=== PATIENT | male | born 1935 | race Caucasian/White ===

== ENCOUNTER 2018-03-07 03:15 | Inpatient (IN) | payer MEDICARE, BC ==
[2018-03-07 03:52] LABS: #Lymphocytes 1.3 thou/uL (1.20-3.40); #Monocytes 0.4 thou/uL (0.11-0.59); #Neutrophils 11.6 thou/uL (1.40-6.50); %Basophils 0.2 % (0.0-1.0); %Eosinophils 0.2 % (0.0-10.0); %Lymphocytes 9.5 % (21.0-51.0); %Monocytes 2.7 % (0.0-10.0); %Neutrophils 87.4 % (42.0-75.0); Hemoglobin 13.7 g/dL (14.0-18.0); Mean Corpuscular HGB CONC 33.2 g/dL (32.0-36.0); Mean Corpuscular Hemoglobin 34.5 pg (27.0-31.0); Mean Platelet Volume 6.8 fL (7.4-10.4); Platelet Count 401 thou/uL (130-400); RBC Distribution Width 12.6 % (11.5-14.5); Red Blood Cell (RBC) Count 3.97 mill/uL (4.70-6.10); White Blood Cell (WBC) Count 13.3 thou/uL (4.8-10.8)
[2018-03-07 04:08] LABS: ALT (SGPT) 17 U/L (8-55); AST (SGOT) 70 U/L (5-34); Albumin 4.4 g/dL (3.4-4.8); Alkaline Phosphatase 69 U/L (40-150); Anion Gap 17 mmol/L (10-20); BUN (Urea Nitrogen) 23 mg/dL (8.4-25.7); Bilirubin, Total 0.5 mg/dL (0.2-1.2); Calc. Creatinine Clearance 0 mL/min (70-130); Calcium 9.3 mg/dL (7.8-10.44); Carbon Dioxide 20 mmol/L (23-31); Chloride 108 mmol/L (98-107); Estimated GFR-MDRD 33; Globulin 3.8 g/dL (2.4-3.5); Glucose 144 mg/dL (83-110); Lipase 13 U/L (8-78); Potassium 4.4 mmol/L (3.5-5.1); Protein, Total 8.2 g/dL (5.8-8.1); Sodium 141 mmol/L (136-145)
[2018-03-07 04:11] LABS: Troponin I Less than 0.010 ng/mL (< 0.028)
[2018-03-07 04:13] LABS: CKMB 8.1 ng/mL (0-6.6)
[2018-03-07] MEDS ORDERED: Ondansetron PF 4 MG/2 ML Vial ONE (04:20)
[2018-03-07] MEDS ORDERED: Morphine 4 MG/ML VIAL ONE (04:20)
[2018-03-07] MEDS ORDERED: Ondansetron PF 4 MG/2 ML Vial IVP PRN ×2 (05:00→10:32)
[2018-03-07] MEDS ORDERED: Ondansetron ODT 4 MG TAB SL PRN (05:00)
[2018-03-07] MEDS ORDERED: Acetaminophen 325 MG TAB PO PRN ×2 (05:00→10:32)
[2018-03-07 06:11] LABS: Bilirubin Negative (Negative); Blood, Urine Negative (Negative); Clarity CLEAR (Clear); Glucose, Urine (Dipstick) 100 mg/dL (Negative); Leukocyte Negative (Negative); Nitrite Negative (Negative); Protein, Urine (Dipstick) 300 mg/dL (Neg-Trace); Specific Gravity, Urine 1.018 (1.002-1.036); Urobilinogen 0.2 mg/dL (0.2-1.0)
[2018-03-07 06:13] LABS: Bacteria/HPF None Seen HPF (None Seen); Hyaline Casts/LPF 0-3 HYALINE CAST LPF (0-3 Hyaline); Pathc Cast-AUWi Flag 0.58 (0-2.49); Squamous Epithelial 0-3 HPF (0-3)
[2018-03-07 06:51] LABS: RBC/HPF 0-3 HPF (0-3)
[2018-03-07 06:55] LABS: Crystals/HPF 1+ AMORPH PHOS HPF (Negative)
--- NOTE | 2018-03-07 08:23 | CT ---
PRELIMINARY REPORT/[facility]/EMERGENTY AFTER-HOURS PROCEDURE CT Abdomen and Pelvis Without Intravenous Contrast CLINICAL HISTORY: 82 years old, male; Pain; Abdominal pain; Generalized; Patient HX: Non contrast due to patient allerg y; Pt reports abdominal pain with associated vomiting and diarrhea. HX of small bowel obstruction. TECHNIQUE: Axial computed tomography images of the abdomen and pelvis without intravenous contrast. Coronal reformatted images were created and reviewed. COMPARISON: No relevant prior studies available. FINDINGS: Lung bases: No acute findings. No mass. No consolidation. Emphysematous changes. Few punctate periphe ral nonspecific nodules. ABDOMEN: Liver: No mass. Gallbladder and bile ducts: No calcified stones. No ductal dilation. Pancreas: No ductal dilation. No mass. Spleen: No mass. Adrenals: Mild bilateral adrenal nodularity/thickening. Kidneys and ureters: No obstructing stones. No hydronephrosis. Bilateral renal cortical cysts and few small renal cortical lesions too small to characterize/higher than simple fluid attenuation that can be followed. Stomach and bowel: Air and fluid filled mildly dilated small bowel loops. Distended stomach. Colonic diverticulosis. PELVIS: Appendix: No findings to suggest acute appendicitis. Bladder: No stones. Reproductive: Enlarged prostate. ABDOMEN and PELVIS: Intraperitoneal space: Mild pelvic cul-de-sac free fluid. No free air. Bones/joints: No acute fracture. Soft tissues: No acute findings. Vasculature: Atherosclerotic calcifications. Infrarenal abdominal aortic aneurysm with aortobiiliac stent-graft in place. Left renal stent. Lymph nodes: No lymphadenopathy. IMPRESSION: Mildly dilated small bowel loops could relate to enteritis, ileus; partial small bowel obstruction no t completely excluded. Other findings above. Thank you for allowing us to participate in the care of your patient. Dictated and Authenticated by: Abdelrahman Méndez MD 03/07/2018 5:15 AM Central Time ([place] & [place]) FINAL REPORT ABDOMEN CT WITHOUT CONTRAST PELVIC CT WITHOUT CONTRAST: COMPARISON: 11/15/2016. HISTORY: Abdominal pain. FINDINGS: This report is in agreement with the preliminary report by [facility]. There are bilateral renal cortical c ysts with additional hypodensities that are too small to characterize. Normal-caliber appendix is no jessica. No evidence of bowel obstruction. Intrarenal abdominal aortic aneurysm with aortobiiliac stent graft is noted. There is a left renal artery stent. POS: [facility]
[2018-03-07] MEDS ORDERED: Morphine 4 MG/ML VIAL SLOW IVP PRN (08:38)
[2018-03-07] MEDS ORDERED: Acetaminophen 650 MG Suppository PR PRN (10:32)
[2018-03-07] MEDS ORDERED: Ondansetron ODT 4 MG TAB PO PRN (10:32)
[2018-03-07] MEDS ORDERED: hydrALAZINE 20 MG/ML VIAL SLOW IVP PRN (10:35)
--- NOTE | 2018-03-07 11:05 | HP ---
PRIMARY CARE PHYSICIAN: SLIM Campbell CHIEF COMPLAINT: Sudden onset of abdominal pain. HISTORY OF PRESENT ILLNESS: The patient is an 82-year-old male with coronary artery disease, hypertension, dyslipidemia, and small-bowel obstruction last year, presented to the emergency room with sudden onset of abdominal pain that started around 7:00 p.m. while he was at home. He had some diarrhea at the onset; however, no bowel movement since then. The abdominal pain was moderate to severe in intensity, more or less constant in the lower quadrants. No aggravating or relieving factor reported. He has not passed gas over the last 8 hours. He denies any abdominal surgery except for percutaneous aortic stent placement. He had a colonoscopy around 6 years ago. He had nausea with several episodes of vomiting. The last episode of nausea and vomiting was before 2:00 a.m. In the emergency room, his initial vital signs showed temperature 97.7, respiration 18, pulse rate of 100 with a blood pressure of 177/88, with O2 saturation 95% on room air. A CT scan of the abdomen without contrast was consistent with mildly dilated small bowel loops consistent with small-bowel obstruction. He received morphine and Zofran in the emergency room. PAST MEDICAL HISTORY: 1. Coronary artery disease, status post coronary artery bypass grafting. 2. Peripheral vascular disease. 3. Dyslipidemia. 4. Hypertension. 5. Former smoker. 6. Hospitalization for small-bowel obstruction last year. 7. Benign prostatic hypertrophy. 8. Chronic kidney disease stage 3. PAST SURGICAL HISTORY: 1. CABG in [place] around 15 years ago. 2. Endovascular aneurysm repair of the abdominal aortic aneurysm as well as a stent placement to the left renal artery by Dr. Abarca in 2010. ALLERGIES: The patient is allergic to IODINE. CURRENT HOME MEDICATIONS: Plavix 75 mg daily, fenofibrate 160 mg daily, hydralazine 50 mg b.i.d., Flomax 0.4 mg daily, atenolol 100 mg daily, aspirin 81 mg daily, amlodipine 10 mg daily. SOCIAL HISTORY: The patient currently lives at home. Denies any current use of smoking, alcohol or drug use. CODE STATUS: He makes his own decisions with the help of his family. He is FULL CODE. FAMILY HISTORY: Positive for hypertension. REVIEW OF SYSTEMS: The following complete review of systems was negative, unless otherwise mentioned in the HPI or below: Constitutional: Weight loss or gain, ability to conduct usual activities. Skin: Rash, itching. Eyes: Double vision, pain. ENT/Mouth: Nose bleeding, neck stiffness, pain, tenderness. Cardiovascular: Palpitations, dyspnea on exertion, orthopnea. Respiratory: Shortness of breath, wheezing, cough, hemoptysis, fever or night sweats. Gastrointestinal: Poor appetite, abdominal pain, heartburn, nausea, vomiting, constipation, or diarrhea. Genitourinary: Urgency, frequency, dysuria, nocturia. Musculoskeletal: Pain, swelling. Neurologic/Psychiatric: Anxiety, depression. Allergy/Immunologic: Skin rash, bleeding tendency. PHYSICAL EXAMINATION: VITAL SIGNS: As discussed above. GENERAL: An 82-year-old male in no distress. He states that morphine has controlled his pain. HEENT: Head atraumatic, normocephalic. Sclerae are anicteric. Moist mucous membranes. No oral lesion. NECK: Supple, no JVD appreciated. No carotid bruit. LUNGS: Clear to auscultation bilaterally, no wheezing, rales or rhonchi. HEART: S1, S2 present. Regular rate and rhythm. No rubs or gallops appreciated. ABDOMEN: Distended. There is mild tenderness in the lower quadrants. Hyperactive bowel sounds. No guarding, rigidity. EXTREMITIES: No edema or calf tenderness. NEUROLOGIC: Grossly nonfocal, moves all 4 extremities. PSYCHIATRY: Alert, awake, oriented x3. SKIN: Warm and dry. LYMPH NODES: No palpable lymph nodes in the neck. PERIPHERAL VASCULAR: Radial pulses palpable bilaterally. MUSCULOSKELETAL: No joint swelling or tenderness. LABORATORY FINDINGS: CBC showed WBC 13.3 with hemoglobin 13.7, hematocrit 41.3 , platelet of 401. Chemistry showed sodium 141, potassium 4.4, chloride 108, bicarbonate 20, BUN 20, creatinine 1.96. Troponin negative. AST 70. CT scan of the abdomen and pelvis by my review as discussed above. IMPRESSION: 1. Small-bowel obstruction. 2. Coronary artery disease, status post coronary artery bypass graft. 3. Peripheral vascular disease with aortic aneurysm repair as well as left renal artery stent placement on aspirin and Plavix. 4. Hypertension. 5. Chronic kidney disease stage 3. 6. Hyperlipidemia. 7. Iodine allergy. 8. Dehydration from a small-bowel obstruction. 9. Leukocytosis, unlikely to be infectious. 10. Chronic macrocytosis. PLAN: The patient will be monitored on the medical floor. We will get vitals q.4h. We will start him on IV fluids. I discussed with Dr. Babcock. Please note that he is refusing NG tube. We will start him on Pepcid IV twice a day. All of his oral medications will be held for now since he is n.p.o. Pain control with IV morphine. A.m. labs including lactic acid. Fall precaution. Walking program. Plan of care was discussed with the patient and the family in detail. He stated understanding. MTDD
[2018-03-07] MEDS: Dextrose 5 %-0.45 % NaCl 1,000 ML IV SCH ×2 (11:11→20:51)
[2018-03-07 12:01] VITALS: BMI 28.0
[2018-03-07] MEDS ORDERED: MD-Gastroview 120 ML BOT ONE (16:04)
--- NOTE | 2018-03-07 16:18 | HP ---
DATE OF ADMISSION: 03/07/2018 HISTORY OF PRESENT ILLNESS: Kentrell Gardner is an 82-year-old male patient who lives in [facility]. He is independent. He is busy on his property taking care of the property and livestock. The patient has been seen in 2014 and 2017 for similar episodes as this presentation, mainly abdominal di stention, nausea and vomiting. He has not had previous abdominal operations. He has been seen on , 02/12/2016 and 11/18/2016 and has had small bowel follow throughs documenting lack of compl ete obstruction, but has had some persistent dilated loops of bowel. The patient reports having had a colonoscopy in the past, several years ago, but cannot recall when. He has had normal bowel functi on in the interim, but yesterday began having abdominal distention, cramps and vomiting. He was admi tted to the hospital and underwent a CAT scan of the abdomen and pelvis noting small bowel distention , stomach distention with fluid and there possibly could be a questionable transition point in the te rminal ileum, although difficult to delineate. Since being in the hospital, he has not passed gas or stool. The patient is adamant to try a small bowel follow through as this seems to have helped him in the past. ALLERGIES: IODINATED CONTRAST, although states he took Gastrografin last hospitalization without pro blems. TOBACCO: None for many years. Tobacco abuse decades past. ALCOHOL: None. MEDICATIONS: Aspirin, amlodipine, Flomax, fenofibrate, Tenormin, Plavix. PAST SURGICAL HISTORY: Aortic stent for aneurysmal disease placed by Dr. Abarca, coronary artery bypa ss grafting in the past. The patient has not had any cardiac events since that time. He is followed by Dr. Estevze. He has bilateral renal artery stenosis. ORIF right ankle in 2002. PAST MEDICAL HISTORY: Coronary artery disease, chronic kidney disease, renal artery stenosis and alf vated triglycerides. SOCIAL HISTORY: Tobacco cessation early 2016, half pack a day prior. Alcohol, socially, rarely. patient reports allergies to INTRAVENOUS IODINE. He reports tolerating the Gastrografin study last visit without problems. REVIEW OF SYSTEMS: Ten point noncontributory. PHYSICAL EXAMINATION: VITAL SIGNS: 5 feet 9 inches, 190 pounds, 28 BMI, 98.2, 73, 169/80. LUNGS: Clear to auscultation. CARDIAC: Regular rate and rhythm without murmur or gallop. ABDOMEN: Soft, nontender, mildly distended, questionably tympanitic, but very minimally so. No abdo fredy tenderness. EXTREMITIES: Unremarkable. LABORATORY DATA: White count 13, hemoglobin 13. Basic metabolic profile normal except for a creatin ine of 1.97, which is about baseline for him. ASSESSMENT AND PLAN: 1. CAT scan demonstrating questionable partial bowel obstruction. He has not passed flatus or stool . He has not had abdominal operations in the past. We will plan Gastrografin small bowel follow thr ough. 2. Status post endovascular aortoiliac stenting and percutaneous venous angioplasty and stenting of the iliacs. 3. History of tobacco abuse. 4. Chronic obstructive pulmonary disease. 5. History of coronary artery bypass grafting, followed by Dr. Estevez.
--- NOTE | 2018-03-07 19:37 | RAD ---
SMALL BOWEL FOLLOW THROUGH: 03/07/18 HISTORY: Abdominal pain. Possible obstruction. FINDINGS: Gastrografin contrast was administered. Nondilated small bowel throughout the abdomen. Colon was reac hed at two hours. IMPRESSION: No evidence of bowel obstruction. POS: [facility]
[2018-03-07] MEDS ORDERED: Famotidine/PF 20 mg/2ml Vial SLOW IVP SCH (21:00)
[2018-03-08] MEDS: Dextrose 5 %-0.45 % NaCl 1,000 ML IV SCH (03:13)
[2018-03-08 07:55] VITALS: BP 151/75; TEMP 98.1
[2018-03-08] MEDS ORDERED: Aspirin 81 mg Enteric Coated Tablet PO SCH (09:00)
[2018-03-08] MEDS ORDERED: Atenolol 50 MG TAB PO SCH (09:00)
[2018-03-08] MEDS ORDERED: Non-Formulary Item 1 EACH (Fenofibrate [Fenofibrate] 160 MG) PO SCH (09:00)
[2018-03-08] MEDS ORDERED: Amlodipine 10 MG TAB PO SCH (09:00)
[2018-03-08] MEDS ORDERED: Clopidogrel Bisulfate 75 MG TAB PO SCH (09:00)
[2018-03-08] MEDS ORDERED: Non-Formulary Item 1 EACH (Esomeprazole Magnesium [Nexium] 40 MG) PO SCH (09:00)
[2018-03-08] MEDS ORDERED: Tamsulosin HCl 0.4 MG CAP PO SCH (09:00)
[2018-03-08] MEDS ORDERED: Polyethylene Glycol 3350 17 GM Packet PO SCH (09:00)
[2018-03-08] MEDS ORDERED: Non-Formulary Item 1 EACH (Hydralazine Hcl [Hydralazine Hcl] 50 MG) PO SCH (09:00)
[2018-03-08] MEDS ORDERED: Fenofibrate Nanocrystallized 145 MG TAB PO SCH (09:00)
[2018-03-08] MEDS ORDERED: hydrALAZINE 25 MG TAB PO SCH (09:00)
[2018-03-08] MEDS ORDERED: Non-Formulary Item 1 EACH (Atenolol [Tenormin] 100 MG) PO SCH (09:00)
--- NOTE | 2018-03-08 11:48 | PRG ---
DATE OF SERVICE: 03/08/2018 HISTORY OF PRESENT ILLNESS: Kentrell Gardner is doing well today. Small bowel follow through revealed tra nsient of the colon within a short time. Patient is having multiple bowel movements. He was started on regular diet last night and tolerated this. He has had more bowel movements this morning. OBJECTIVE: LUNGS: Clear to auscultation. CARDIAC: Regular rate and rhythm without murmur. ABDOMEN: Soft, nontender, nondistended. ASSESSMENT AND PLAN: Resolved bowel obstruction. The patient has never had any abdominal operations . Etiology of his problems is uncertain. He has had a colonoscopy years past. We might consider di agnostic laparoscopy in the future if he continues to have these. He has had these episodes yearly f or the past four years requiring hospitalizations and small bowel follow through. He refers to the G astrografin his jungle juice because it makes him feel so much better and resolved his obstructive sy mptoms. CAT scan does not reveal the etiology of these occurrences. The patient does not have any s ymptoms in between these episodes. I have recommended he take MiraLax daily. He will be discharged home today.
--- NOTE | 2018-03-08 14:36 | PQF ---
JUSTIN MERINO MALIK MD [id number] SURG A- [id number] CLINICAL DOCUMENTATION IMPROVEMENT CLARIFICATION FORM: ICD-10 Updated PLEASE DO AN ADDENDUM TO THE PROGRESS NOTE WITH ANY DOCUMENTATION UPDATES OR ADDITIONS AND CARRY THROUGH TO DC SUMMARY. THANK YOU. DATE: 03/08/18 ATTN: DR. PATEL Please exercise your independent, professional judgment in responding to the clarification form. Clinical indicators are provided on the bottom of this form for your review Please check appropriate box(s): [ ] SIRS due to Non-infectious process: [ ] small bowel obstruction [ ] Enteritis [ ] Without organ dysfunction [ ] Other diagnosis [ ] Unable to determine In addition, please specify: Present on Admission (POA): [ ] Yes [ ] No [ ] Unable to determine For continuity of documentation, please document condition throughout progress notes and discharge summary. Thank You. CLINICAL INDICATORS - SIGNS / SYMPTOMS / LABS HR 100 03/07 VS WBC 13.3 03/[address] A/P: 03/07--mildly dilated small bowel loops could relate to enteritis, ileus ; partial small bowel obstruction not completed excluded RISK FACTORS history per H&P of SBO last year TREATMENT IV Fluids--> 1 liter NS x1 per JUL 30 Daily labs per orders 03/07 to date Management of underlying cause--morphine, zofran iv ED per JUL THANK YOU, ALFREDO (This form is maintained as a part of the permanent medical record) 2014 [employer], [employer]. All Rights Reserved Alfredo Bell RN, BSN, CCDS [email or web address] [phone] [facility] CENTERKamille
--- NOTE | 2018-03-09 10:36 | DIS ---
DATE OF DISCHARGE: 03/08/2018 DISCHARGE DISPOSITION: Home. FOLLOWUP: 1. Follow up with primary care physician, Payton Velazquez, nurse practitioner in 1 week. 2. Follow up with General Surgery, Dr. Babcock in 2 weeks. DISCHARGE MEDICATIONS: As same as admission medication. No changes were made. ALLERGIES: The patient is allergic to IODINE. The patient was seen and examined on the day of discharge, denies any new complaints, no chest pain, shortness of breath or palpitations. BRIEF HOSPITAL COURSE: Patient is an 82-year-old male with coronary artery disease, hypertension, dy slipidemia, and small-bowel obstruction last year, presented to the hospital with sudden onset of abd ominal pain. His workup in the emergency room was consistent with small-bowel obstruction. He recei isidoro morphine, Zofran in the emergency room. Please refer to the history and physical for further det ails. The patient was admitted to the hospital with a diagnosis of small-bowel obstruction. He declined NG tube. He was seen by General Surgery, Dr. Babcock. He was placed on IV fluids with Pepcid. He star jessica having several bowel movements after Gastrografin small bowel follow through. He has been cleare d by General Surgery for discharge. FINAL DIAGNOSES: 1. Systemic inflammatory response syndrome secondary to small bowel obstruction, resolved. 2. Coronary artery disease, status post coronary artery bypass grafting. 3. Peripheral vascular disease with aortic aneurysm repair as well as left renal artery stent placem ent on aspirin and Plavix. 4. Hyperlipidemia. 5. Hypertension. 6. Chronic kidney disease, stage 3. 7. IODINE allergy. 8. Dehydration. 9. Chronic macrocytosis. Plan of care was discussed with the patient in detail. He stated understanding.
== END 2018-03-08 09:46 | disposition home or self-care (01) | DRG 389 ==
LOC: ERS 03:15 → SURG A 08:03
PROVIDERS: ADMIT Hospitalist; ATTEND Hospitalist
DX: K56.609 Unspecified intestinal obstruction, unspecified as to partial versus complete obstruction (principal); R65.10 Systemic inflammatory response syndrome (SIRS) of non-infectious origin without acute organ dysfunction; I25.10 Atherosclerotic heart disease of native coronary artery without angina pectoris; Z95.1 Presence of aortocoronary bypass graft; I73.9 Peripheral vascular disease, unspecified; E78.5 Hyperlipidemia, unspecified; I12.9 Hypertensive chronic kidney disease with stage 1 through stage 4 chronic kidney disease, or unspecified chronic kidney disease; N18.3 Chronic kidney disease, stage 3 (moderate); E86.0 Dehydration; D75.89 Other specified diseases of blood and blood-forming organs; N40.0 Benign prostatic hyperplasia without lower urinary tract symptoms; Z87.891 Personal history of nicotine dependence
CPT/HCPCS: 74176; 74250; 80053; 81003; 81015; 82553; 83605; 83690; 84484; 85025; 87077; 87086; 87186; 96374; 96375; J2270; J2405; S0028

== ENCOUNTER 2018-10-19 09:11 | Outpatient (CLI) | payer MEDICARE, BC ==
--- NOTE | 2018-10-19 09:38 | RAD ---
RADIOGRAPH CHEST 2 VIEWS: HISTORY: An 83-year-old male with dyspnea. FINDINGS: The thoracic aorta is tortuous and ectatic. There is no evidence of air space density, pneumothorax, or pulmonary edema. There is no cardiomegaly or pleural effusion. There is an array of several murali gical clips along the right side of the mediastinum. There are sternotomy wires. IMPRESSION: 1) No acute cardiopulmonary findings. 2) Ectasia of thoracic aorta. 3) Evidence of previous open heart surgery. rae [] POS: [facility]
--- NOTE | 2018-10-19 09:40 | RAD ---
RADIOGRAPH ABDOMEN 1 VIEW: DATE: 10/19/2018. HISTORY: An 83-year-old male with abdominal pain. FINDINGS: There is an abdominal aortic stent graft. There is a short stent at the left superior edge of this, probably at the left renal artery. Surgical clips overlying the bilateral groins, left more than rig ht. Gas in multiple nondilated loops of colon and some in nondilated small bowel loops. Moderate am ount of colonic stool. IMPRESSION: 1. No evidence of bowel obstruction. 2. Endograft treatment of abdominal aortic aneurysm. 3. Left renal artery stent. POS: [facility]
== END 2018-10-19 09:12 | disposition home or self-care (01) ==
LOC: RAD-FRANK 09:11
PROVIDERS: ATTEND Nurse Practitioner Family
DX: R10.9 Unspecified abdominal pain (principal); R06.02 Shortness of breath; I71.4 Abdominal aortic aneurysm, without rupture; Z98.890 Other specified postprocedural states; Z96.0 Presence of urogenital implants
CPT/HCPCS: 71046; 74018

== ENCOUNTER 2018-11-08 15:22 | Outpatient (CLI) | payer MEDICARE, BC ==
--- NOTE | 2018-11-08 16:09 | ULT ---
Exam: Bilateral renal ultrasound HISTORY: Chronic kidney disease COMPARISON: None FINDINGS: Right kidney: Normal cortical echotexture. No hydronephrosis. 1.6 x 1.3 x 1.3 cm cyst in the mid pole . Second cyst in the mid to inferior aspect measuring 1.9 x 1.7 x 1.2 cm. There is renal cortical thinning. Right kidney measurements: 9.3 x 5.2 x 5.2 cm. Left kidney: Multiple renal cortical cysts. Largest cyst measures 2.9 x 2.6 x 2.4 cm. Superior and me dial to the left kidney, there is a complex hypoechoic mass measuring 5.9 x 4.4 x 3.3 cm, in evaluation. Correlation made with CT from 10 11/02/2017 does not demonstrate a definite correlate. The re is renal cortical thinning. No hydronephrosis. Left kidney measurements 5.2 x 5.0 x 9.7 cm. Urinary bladder: Limited evaluation due to inadequate distention. IMPRESSION: 1. No hydronephrosis 2. Bilateral renal cortical thinning. 3. Bilateral renal cortical cysts. 4. Hypoechoic mass superior and medial to the left kidney, incompletely evaluated. Further evaluation with CT is recommended. CODE T
== END 2018-11-08 15:23 | disposition home or self-care (01) ==
LOC: ULT 15:22
PROVIDERS: ATTEND Internal Medicine Nephrology
DX: I12.9 Hypertensive chronic kidney disease with stage 1 through stage 4 chronic kidney disease, or unspecified chronic kidney disease (principal); N18.4 Chronic kidney disease, stage 4 (severe); N28.89 Other specified disorders of kidney and ureter; N28.1 Cyst of kidney, acquired
CPT/HCPCS: 76770

== ENCOUNTER 2018-11-24 10:48 | Emergency (ER) | payer MEDICARE, BC ==
--- NOTE | 2018-11-24 11:43 | CT ---
CT Stone Protocol: 11/24/2018 11:16 AM HISTORY: Intermittent bilateral flank pain COMPARISON: 11/14/2014 TECHNIQUE: Multiple contiguous axial images were obtained and a CT of the abdomen and pelvis without IV contrast . Coronal reformats were performed. FINDINGS: This examination is limited for the evaluation of solid organs and vascular structures due to the lac k of intravenous contrast. Lower Chest: within normal limits. Abdomen: Liver: within normal limits. Bile Ducts: Normal caliber. Gallbladder: No calcified gallstones. Normal caliber wall. Pancreas: within normal limits. Spleen: within normal limits. Adrenals: within normal limits. Kidneys: Bilateral renal cysts measuring up to 2.7 cm in size. Pelvis: Reproductive Organs: No pelvic masses. Ureters: within normal limits. Bladder: within normal limits. Bowel: Normal caliber. Scattered diverticula in the colon. Normal appendix. Mesenteric Lymph Nodes: No enlarged mesenteric lymph nodes. Peritoneum: No ascites or free air, no fluid collection. Vessels: Stent graft repair of the aorta which measures 4.0 cm in greatest dimension. Retroperitoneum: within normal limits. Abdominal Wall: within normal limits. Bones: Degenerative changes in the spine. IMPRESSION: 1. No evidence of acute intraabdominal or pelvic abnormality. 2. Renal cysts 3. Diverticulosis 4. Status post stent graft repair of a stable aorta.
[2018-11-24 11:55] LABS: ALT (SGPT) 15 U/L (8-55); AST (SGOT) 61 U/L (5-34); Alkaline Phosphatase 49 U/L (40-150); Anion Gap 12 mmol/L (10-20); BUN (Urea Nitrogen) 34 mg/dL (8.4-25.7); Bilirubin, Total 0.5 mg/dL (0.2-1.2); Calc. Creatinine Clearance 0 mL/min (70-130); Calcium 8.4 mg/dL (7.8-10.44); Carbon Dioxide 21 mmol/L (23-31); Chloride 108 mmol/L (98-107); Estimated GFR-MDRD 29; Globulin 2.9 g/dL (2.4-3.5); Glucose 97 mg/dL (83-110); Potassium 4.3 mmol/L (3.5-5.1); Protein, Total 6.9 g/dL (5.8-8.1); Sodium 137 mmol/L (136-145)
[2018-11-24 12:17] LABS: Hemoglobin 11.9 g/dL (14.0-18.0); Mean Corpuscular HGB CONC 32.6 g/dL (32.0-36.0); Mean Corpuscular Hemoglobin 34.4 pg (27.0-31.0); Mean Platelet Volume 6.6 fL (7.4-10.4); Platelet Count 282 thou/uL (130-400); RBC Distribution Width 12.4 % (11.5-14.5); Red Blood Cell (RBC) Count 3.45 mill/uL (4.70-6.10); White Blood Cell (WBC) Count 8.6 thou/uL (4.8-10.8)
[2018-11-24 12:27] LABS: #Eosinphils 0.2 thou/uL (0.0-0.7); #Lymphocytes 1.8 thou/uL (1.20-3.40); #Monocytes 0.6 thou/uL (0.11-0.59); #Neutrophils 5.9 thou/uL (1.40-6.50); %Basophils 0.2 % (0.0-1.0); %Eosinophils 2.5 % (0.0-10.0); %Lymphocytes 20.7 % (21.0-51.0); %Monocytes 7.5 % (0.0-10.0); %Neutrophils 69.1 % (42.0-75.0); MDiff Complete? YES; Macrocytosis SLIGHT = 6-15 cells (100X) (0-5/hpf); Platelet Morphology Comment Appears Adequate; Poikilocytosis SLIGHT = 6-15 cells (100X) (0-5/hpf)
[2018-11-24 13:33] LABS: Bilirubin Negative (Negative); Blood, Urine Negative (Negative); Clarity Clear (Clear); Glucose, Urine (Dipstick) Normal (Negative); Leukocyte Negative Leu/uL (Negative); Nitrite Negative (Negative); Protein, Urine (Dipstick) Negative (Neg-Trace); Urobilinogen Normal mg/dL (Less than 2)
== END 2018-11-24 15:10 | disposition home or self-care (01) ==
LOC: ERS 10:48
DX: R10.9 Unspecified abdominal pain (principal); I10 Essential (primary) hypertension; I25.2 Old myocardial infarction; E78.5 Hyperlipidemia, unspecified; I71.4 Abdominal aortic aneurysm, without rupture; Z87.891 Personal history of nicotine dependence; Z79.899 Other long term (current) drug therapy
CPT/HCPCS: 36415; 74176; 80053; 81003; 84484; 85025; 87086; 93005; 96360

== ENCOUNTER 2019-01-08 02:03 | Inpatient (IN) | payer MEDICARE, BC ==
[2019-01-08] MEDS ORDERED: Ondansetron PF 4 MG/2 ML Vial ONE (02:26)
[2019-01-08] MEDS ORDERED: Morphine 4 MG/ML VIAL ONE (02:26)
[2019-01-08 02:32] LABS: #Eosinphils 0.1 thou/uL (0.0-0.7); #Lymphocytes 1.3 thou/uL (1.20-3.40); #Monocytes 0.5 thou/uL (0.11-0.59); #Neutrophils 9.2 thou/uL (1.40-6.50); %Lymphocytes 11.8 % (21.0-51.0); %Monocytes 4.2 % (0.0-10.0); %Neutrophils 83.1 % (42.0-75.0); Hemoglobin 13.2 g/dL (14.0-18.0); Mean Corpuscular HGB CONC 33.8 g/dL (32.0-36.0); Mean Corpuscular Hemoglobin 35.4 pg (27.0-31.0); Mean Platelet Volume 6.5 fL (7.4-10.4); Platelet Count 359 thou/uL (130-400); RBC Distribution Width 12.7 % (11.5-14.5); Red Blood Cell (RBC) Count 3.73 mill/uL (4.70-6.10); White Blood Cell (WBC) Count 11.1 thou/uL (4.8-10.8)
[2019-01-08 02:53] LABS: ALT (SGPT) 11 U/L (8-55); AST (SGOT) 62 U/L (5-34); Albumin 4.4 g/dL (3.4-4.8); Alkaline Phosphatase 51 U/L (40-150); Anion Gap 17 mmol/L (10-20); BUN (Urea Nitrogen) 35 mg/dL (8.4-25.7); Bilirubin, Total 0.3 mg/dL (0.2-1.2); Calc. Creatinine Clearance 0 mL/min (70-130); Calcium 9.4 mg/dL (7.8-10.44); Carbon Dioxide 25 mmol/L (23-31); Chloride 106 mmol/L (98-107); Estimated GFR-MDRD 28; Globulin 3.2 g/dL (2.4-3.5); Glucose 127 mg/dL (83-110); Lipase 16 U/L (8-78); Potassium 4.6 mmol/L (3.5-5.1); Protein, Total 7.6 g/dL (5.8-8.1); Sodium 143 mmol/L (136-145)
[2019-01-08] MEDS ORDERED: Sodium Chloride 0.9% 1,000 ML IV SCH (06:03)
[2019-01-08] MEDS ORDERED: Ondansetron ODT 4 MG TAB SL PRN (06:03)
[2019-01-08] MEDS ORDERED: Ondansetron PF 4 MG/2 ML Vial IVP PRN (06:03)
[2019-01-08] MEDS ORDERED: Morphine 4 MG/ML VIAL SLOW IVP PRN ×2 (06:04→10:00)
[2019-01-08 06:20] VITALS: BMI 23.3
[2019-01-08] MEDS ORDERED: Acetaminophen 650 MG Suppository PR PRN (08:52)
[2019-01-08] MEDS ORDERED: Acetaminophen 325 MG TAB PO PRN (08:52)
[2019-01-08] MEDS ORDERED: Guaifenesin DM 100-10/5 ML UDCUP PO PRN (08:52)
[2019-01-08] MEDS ORDERED: Bisacodyl 10 MG SUPP PR PRN (08:52)
[2019-01-08] MEDS ORDERED: Enoxaparin Sodium 40 MG/0.4 ML SYRINGE SC SCH (09:00)
--- NOTE | 2019-01-08 09:01 | RAD ---
ABDOMEN 2 VIEWS AND CHEST 1 VIEW: HISTORY: Abdominal pain. COMPARISON: 10/19/2018. FINDINGS: Interval development of abnormally dilated small bowel loops with air fluid levels, evidence for smal l bowel obstruction since the prior study. No overt free intraperitoneal air. No significant acute process in the chest. Aortobiiliac stent graft and left renal artery stent, stable. IMPRESSION: Developing abnormal dilated small bowel loops with air fluid levels concerning for small bowel obstru ction. Consider additional imaging depending on clinical concern. POS: [facility]
[2019-01-08] MEDS ORDERED: MD-Gastroview 120 ML BOT ONE (10:43)
[2019-01-08] MEDS: Ondansetron PF 4 MG/2 ML Vial IVP PRN (10:57)
[2019-01-08] MEDS: Famotidine/PF 20 mg/2ml Vial SLOW IVP SCH ×2 (10:57→20:02)
[2019-01-08] MEDS: Tamsulosin HCl 0.4 MG CAP PO SCH (11:16)
[2019-01-08] MEDS: Atenolol 50 MG TAB PO SCH (11:16)
[2019-01-08] MEDS ORDERED: Sodium Chloride 0.45% 1,000 ML IV SCH (11:45)
[2019-01-08] MEDS: Morphine 4 MG/ML VIAL SLOW IVP PRN ×3 (12:27→22:52)
--- NOTE | 2019-01-08 12:43 | RAD ---
Upright portable radiograph abdomen: 01/08/2019 COMPARISON: Prior study on same day HISTORY: Evaluate nasogastric tube. FINDINGS: There is gaseous distention of bowel within the upper abdomen, better evaluated on the prio r examination performed earlier on 01/08/2019. There is a nasogastric tube extending into the left upper quadrant beneath the left hemidiaphragm. IMPRESSION: Nasogastric tube as above.
[2019-01-08] MEDS: Sodium Chloride 0.45% 1,000 ML IV SCH ×2 (13:35→20:03)
--- NOTE | 2019-01-08 15:30 | HP ---
REASON FOR ADMISSION: Small bowel obstruction. HISTORY OF PRESENTING ILLNESS: The patient gives history of having abdominal pain, which is generalized from 7 p.m. onwards yesterday. He also had 1 episode of vomiting and was nauseous. He tried to ambulate multiple times as he has done in the past when he had small bowel obstruction. None of this helped him. He finally called his son, and EMS was summoned and the patient was brought here. The patient says he has had nearly three episodes of small bowel obstruction in the past. He also knows that when they give small bowel follow through dye, the bowel obstruction has gotten resolved in the past. He had a small bowel movement at 4 p.m. yesterday. He was passing flatus yesterday, but none this morning. The patient was pain free up until now and he says that his pain is trying to come back. PAST MEDICAL AND SURGICAL HISTORY: History of recurrent small bowel obstruction , coronary artery disease with prior bypass, dyslipidemia, hypertension, history of tobacco abuse in the past, history of aphxy-fw-hbcbv graft. CURRENT MEDICATIONS: The patient is on, 1. Norvasc 10 mg daily. 2. Aspirin 81 mg daily. 3. Atenolol 100 mg daily. 4. Plavix 75 mg daily. 5. Nexium 40 mg daily. 6. Fenofibrate 160 mg daily. 7. Hydralazine 50 mg twice daily. 8. Flomax 0.4 mg extended release daily. 9. MiraLax 17 g daily. ALLERGIES: ALLERGIC TO IODINE. PERSONAL HISTORY: Quit smoking years ago. Does not abuse alcohol or drugs. He ambulates by himself. Does all his activities of daily living. FAMILY HISTORY: Mother of unknown cancer at the age of 60 years. Father at the age of 90 from natural causes. CODE STATUS: Full. Power of consumer attorney is his son, Mr. Kentrell Hopson. REVIEW OF SYSTEMS: CONSTITUTIONAL: Negative for weight loss or gain, ability to conduct usual activities. SKIN: Negative for rash, itching. EYES: Negative for double vision, pain. ENT/MOUTH: Negative for nose bleeding, neck stiffness, pain, tenderness. CARDIOVASCULAR: Negative for palpitations, dyspnea on exertion, orthopnea. RESPIRATORY: Negative for shortness of breath, wheezing, cough, hemoptysis, fever or night sweats. GASTROINTESTINAL: Negative for poor appetite, abdominal pain, heartburn, nausea , vomiting, constipation, or diarrhea. GENITOURINARY: Negative for urgency, frequency, dysuria, nocturia. MUSCULOSKELETAL: Negative for pain, swelling. NEUROLOGIC/PSYCHIATRIC: Negative for anxiety, depression. ALLERGY/IMMUNOLOGIC: Negative for skin rash, bleeding tendency. PHYSICAL EXAMINATION: GENERAL: The patient is an 83-year-old male, who is currently not in any acute distress. VITAL SIGNS: Blood pressure 146/64, pulse 64 per minute, respiratory rate 18 per minute, temperature 97.7 degrees Fahrenheit, saturating 97% on room air. NECK: Supple. No elevated JVD. HEENT: Eyes; extraocular muscles intact. Pupils reacting to light. Oral cavity, mucous membranes are moist. No exudates or congestion. CARDIOVASCULAR: S1 and S2 heard, regular rhythm. RESPIRATORY: Air entry 1+ bilateral. Scattered rhonchi plus. No rales or wheezes. ABDOMEN: Mildly distended, but is generally soft. No rigidity or guarding. Bowel sounds are heard. EXTREMITIES: No peripheral edema or calf tenderness. VASCULAR: Peripheral pulses 1+ bilateral. No ischemic ulcerations or gangrene. CENTRAL NERVOUS SYSTEM: No gross focal deficits noted. The patient is alert, awake, and oriented well. PSYCHIATRIC: The patient's mood is euthymic. No hallucinations or delusions. IMAGING STUDIES: Abdomen two-view and chest x-ray one-view done on admission shows developing abnormal dilated small bowel loops with air-fluid levels concerning for small bowel obstruction. EKG done shows normal sinus rhythm at 74 beats per minute. He has low voltage EKG seen. LABORATORY DATA: BUN 35, creatinine 2.2, glucose 127, AST 62. Alkaline phosphatase is 51. ALT 11. Total bilirubin 0.3. Troponin x1 is negative. Albumin is 4.4. Lipase is 16. White count of 11, H and H 13 and 39, platelet count 359 with 83% neutrophils, MCV is 105. CLINICAL IMPRESSION AND PLAN: The patient will be under observation on Med/Surg floor for small bowel obstruction. He has had recurrent small bowel obstruction in the past as well. Per patient's request, a small bowel follow through has been ordered. I have spoken to Dr. Babcock, General Surgery, who had seen in the past. He will be gently hydrated with normal saline. We will continue his atenolol 100 mg daily along with Flomax. Morphine p.r.n. for pain and Pepcid 20 mg IV q.12 hourly. If the patient's small bowel obstruction were not to get relieved, the patient will be switched over to inpatient status tomorrow morning. We will continue to closely monitor him on Med/Surg floor for now. Job ID: [id number] MTDD
--- NOTE | 2019-01-08 17:01 | CON ---
DATE OF CONSULTATION: HISTORY OF PRESENT ILLNESS: Kentrell Gardner is an 83-year-old male patient, admitted to the hospital yesterday. He had acute onset yesterday afternoon of abdominal pain, distention, nausea, and cramps. NG tube was not placed, he refused. Abdominal x-rays suggested a bowel obstruction. His hemoglobin is 13 and white count 11. His CO2 is 25, sodium 143, BUN and creatinine 35 and 2.26, which is near baseline for him. ALLERGIES: IODINE. PAST MEDICAL HISTORY: Colonoscopy 30 or 40 years ago. SOCIAL HISTORY: Tobacco, none for 20 years or more. MEDICATIONS: At home; 1. Hydralazine. 2. Flomax. 3. MiraLAX. 4. Fiber. 5. Nexium. 6. Plavix. 7. Tenormin. 8. Aspirin. 9. Amlodipine. PAST SURGICAL HISTORY: Aortic stent placed. No abdominal operations. Bilateral renal artery stenosis, ORIF of right ankle, coronary artery bypass grafting in the past. REVIEW OF SYSTEMS: Noncontributory. Of note, this patient was seen in 2015, 2016, 2017, and 2018 for similar episodes, all treated nonoperatively. Small bowel follow-through documenting lack of complete obstruction, although he has some persistent dilated loops of bowel. On last history and physical in February 2018, the patient reported that he had a colonoscopy in years past, but could not remember when. He states now that has been 20 to 40 years ago. The patient has taken Gastrografin without any allergic reactions in the past. Tobacco abuse in the past, but none for many years. PHYSICAL EXAMINATION: VITAL SIGNS: Height 5 feet and 9 inches, weight 158 pounds, BMI 23, temperature 97.7, pulse 63, and blood pressure 146/64. LUNGS: Clear to auscultation. No wheezing. CARDIAC: Regular rate and rhythm without murmur or gallop. ABDOMEN: Soft, distended, tympanitic. No guarding or rebound. No hernias, groin or ventral. EXTREMITIES: Unremarkable. LABORATORY DATA: As noted. ASSESSMENT AND PLAN: 1. Bowel obstruction. We will obtain Gastrografin small bowel follow-through. He has not had a CAT scan on this occasion. Could consider doing a CAT scan with oral contrast; with IV contrast, pending his Gastrografin small bowel follow-through findings. 2. Chronic kidney disease with acute kidney injury. Continue hydration. 3. Renal artery stenosis. 4. Aortic stent placement. Job ID: [id number]
--- NOTE | 2019-01-08 18:39 | RAD ---
EXAM: XR Small Bowel STANDARD DATE: 01/08/2019 2:00 PM INDICATION: Small bowel obstruction COMPARISON: Acute abdominal series dated January 08, 2019 FINDING: The examination was performed through the 4 hr time nicholas which demonstrated contrast progre ssively feeling mild to moderately dilated loops of small bowel within the central abdomen. The contrast did not migrate into the distal small bowel where there is moderate gaseous distention of mu ltiple loops of small bowel. There is some gas present within the region of the rectum and colon. There is an aorto endograft stent. There is a gastric catheter coiled within the fundus. There are patel rgical clips within the inguinal regions. IMPRESSION:Findings most consistent with high-grade partial small bowel obstruction with no migration of the Gastrografin contrast to the level of the distal small bowel by the 4 HR time nicholas. Findings were called to Dr. Babcock at 6:36 PM on January 08, 2019.
[2019-01-09] MEDS: Morphine 4 MG/ML VIAL SLOW IVP PRN (04:48)
[2019-01-09] MEDS: Sodium Chloride 0.45% 1,000 ML IV SCH ×4 (04:50→23:20)
[2019-01-09 05:04] LABS: #Eosinphils 0.1 thou/uL (0.0-0.7); #Lymphocytes 1.6 thou/uL (1.20-3.40); #Monocytes 0.8 thou/uL (0.11-0.59); #Neutrophils 9.4 thou/uL (1.40-6.50); %Basophils 0.2 % (0.0-1.0); %Eosinophils 0.6 % (0.0-10.0); %Lymphocytes 13.2 % (21.0-51.0); %Monocytes 6.4 % (0.0-10.0); %Neutrophils 79.7 % (42.0-75.0); Hemoglobin 11.5 g/dL (14.0-18.0); Mean Corpuscular HGB CONC 33.2 g/dL (32.0-36.0); Mean Corpuscular Hemoglobin 35.2 pg (27.0-31.0); Mean Platelet Volume 6.6 fL (7.4-10.4); Platelet Count 310 thou/uL (130-400); RBC Distribution Width 12.5 % (11.5-14.5); Red Blood Cell (RBC) Count 3.26 mill/uL (4.70-6.10); White Blood Cell (WBC) Count 11.8 thou/uL (4.8-10.8)
[2019-01-09 05:23] LABS: Anion Gap 13 mmol/L (10-20); BUN (Urea Nitrogen) 28 mg/dL (8.4-25.7); Calc. Creatinine Clearance 27 mL/min (70-130); Calcium 8.4 mg/dL (7.8-10.44); Carbon Dioxide 21 mmol/L (23-31); Chloride 111 mmol/L (98-107); Estimated GFR-MDRD 30; Glucose 99 mg/dL (83-110); Potassium 4.5 mmol/L (3.5-5.1); Sodium 140 mmol/L (136-145)
[2019-01-09] MEDS: Ondansetron PF 4 MG/2 ML Vial IVP PRN (05:30)
[2019-01-09] MEDS: Atenolol 50 MG TAB PO SCH (07:14)
--- NOTE | 2019-01-09 08:16 | RAD ---
XR Abdomen 2 View History: Small bowel obstruction Comparison: Small bowel follow-through prior day Findings: There continue to be dilated loops of bowel the abdomen numerous air-fluid levels. Aortobii liac stent graft is in place. Enteric tube tip projecting of the gastric body. No significant contrast is seen within the large bow el. Impression: High-grade small bowel obstruction. No significant contrast is appreciated within the lar ge bowel.
[2019-01-09] MEDS ORDERED: Famotidine/PF 20 mg/2ml Vial ONE (08:32)
[2019-01-09] MEDS ORDERED: Fentanyl 100 MCG/2 ML VIAL ONE (08:49)
[2019-01-09] MEDS ORDERED: Ketorolac Tromethamine 30 MG/ML VIAL ONE (08:57)
[2019-01-09] MEDS ORDERED: Enoxaparin Sodium 30 MG/0.3 ML SYRINGE SC SCH ×2 (09:00→21:00)
[2019-01-09] MEDS ORDERED: Meropenem 2 GM in Sodium Chloride 0.9% 100 ML IVPB SCH (09:15)
[2019-01-09] MEDS ORDERED: Ketorolac Tromethamine 30 MG/ML VIAL IVP SCH (09:15)
[2019-01-09] MEDS ORDERED: Meropenem 2 GM in Admixture Fee 1 EACH IVPB SCH (09:15)
[2019-01-09] MEDS ORDERED: Acetaminophen 1,000 MG in Premix Bag 1 BAG IVPB SCH (09:15)
[2019-01-09] MEDS ORDERED: Bupivacaine HCl 0.5%/Epinephrine 1:200,000/PF 30 ml Vial ONE (10:02)
[2019-01-09] MEDS ORDERED: Ondansetron HCl/PF 4 MG/2 ML Vial IVP PRN (10:14)
[2019-01-09] MEDS ORDERED: Promethazine HCl 25 MG/ML VIAL IM PRN (10:14)
[2019-01-09] MEDS ORDERED: HYDROmorphone 2 MG/ML VIAL SLOW IVP PRN (10:14)
[2019-01-09] MEDS ORDERED: SUGAMMADEX SODIUM 500 MG/5 ML VIAL ONE (10:15)
--- NOTE | 2019-01-09 10:55 | OP ---
DATE OF PROCEDURE: 01/09/2019 PREOPERATIVE DIAGNOSES: Small bowel obstruction, abnormal Gastrografin small bowel follow through, not progressed in 4 hours. POSTOPERATIVE DIAGNOSES: Small bowel obstruction, abnormal Gastrografin small bowel follow through, not progressed in 4 hours without mechanical obstruction. PROCEDURE PERFORMED: Diagnostic laparoscopy, evaluating the cecum, appendix, terminal ileum to the ligament of Treitz without mechanical obstruction. No transition zone. ANESTHESIA: General, local 0.5% Marcaine with epinephrine 30 mL. DESCRIPTION OF PROCEDURE: The patient was taken to the operating room, where under general anesthesia Rice catheter placed at the beginning of the procedure and removed at the end. Abdomen was prepared with ChloraPrep and draped in routine fashion. Local anesthetic was infiltrated in the skin and subcutaneous tissue about the operative sites. Left lateral subcostal incision was made. Pneumoperitoneum to 15 mmHg was obtained with a Veress needle, replaced with a 5 port where laparoscope was inserted. Left lateral mid abdominal incision was made and left lower quadrant lateral abdominal incision was made and a 5 port was placed. Small bowel was dilated. The patient was positioned to optimize visualization of the cecum, appendix and terminal ileum, all of which were normal. Colon was decompressed. Terminal ileum it was small in caliber. Appendix was normal. Terminal ileum was inspected laparoscopically and noted to be normal. As I progressed more proximally, the small bowel gradually became more dilated. There was no transition point. No mechanical obstruction. Small bowel was inspected from the terminal ileum to the ligament of Treitz without mechanical obstruction without wall thickening, without tumor masses. There was slight amount of ascites fluid, which was evacuated laparoscopically. No other gross abnormalities were noted. The patient had multiple CAT scans prior to this evaluation, which were normal otherwise. Pneumoperitoneum reduced. All instruments were removed, and all skin incisions were approximated with interrupted subdermal 4-0 Monocryl and [place] glue applied. The patient tolerated the procedure well. Job ID: [id number]
--- NOTE | 2019-01-09 12:30 | PDOC.HOSPP ---
- Subjective Encounter Date: 01/09/19 Encounter Time: 12:29 Subjective: post laparoscpic abdominal exploration. no Dx. still passing nothing TX - Objective Vital Signs & Weight: Vital Signs (12 hours) Pulse Resp BP Pulse Ox 01/09/19 07:16 61 16 164/73 H 98 01/09/19 07:14 58 L Weight Weight 158 lb 6.4 oz I&O: 01/08/19 01/09/19 01/10/19 06:59 06:59 06:59 Intake Total 3235 Output Total 4200 Balance -965 Result Diagrams: 01/09/19 04:29 01/09/19 04:29 ROS - Medication Medications: Active Medications Generic Name Dose Route Start Last Admin Trade Name Freq PRN Reason Stop Dose Admin Atenolol 100 mg 01/08/19 09:00 01/09/19 07:14 Tenormin PO 100 mg DAILY SANA Administration Morphine Sulfate 4 mg 01/08/19 11:38 01/09/19 04:48 Morphine SLOW IVP 4 mg Q2H PRN Administration Moderate to Severe Pain (6-10) Ondansetron HCl 4 mg 01/08/19 08:52 01/09/19 05:30 Zofran IVP 4 mg Q6H PRN Administration Nausea/Vomiting Tamsulosin HCl 0.4 mg 01/08/19 09:00 01/08/19 11:16 Flomax PO Not Given DAILY SANA - Exam Neck: no JVD Heart: RRR, no murmur Respiratory: CTAB, no wheezes Gastrointestinal: soft, non-tender, normal bowel sounds Extremities: no edema Hosp A/P (1) SBO (small bowel obstruction) Code(s): K56.69 - OTHER INTESTINAL OBSTRUCTION * DO NOT USE * Status: Acute (2) CAD (coronary artery disease) Code(s): I25.10 - ATHSCL HEART DISEASE OF [place] CORONARY ARTERY W/O ANG PCTRS Status: Chronic Qualifiers: Coronary Disease-Associated Artery/Lesion type: [place] artery [place] vs. transplanted heart: [place] heart Associated angina: without angina Qualified Code(s): I25.10 - Atherosclerotic heart disease of [place] coronary artery without angina pectoris (3) CKD (chronic kidney disease) Code(s): N18.9 - CHRONIC KIDNEY DISEASE, UNSPECIFIED Status: Chronic Qualifiers: Chronic kidney disease stage: stage 3 (moderate) Qualified Code(s): N18.3 - Chronic kidney disease, stage 3 (moderate) (4) HTN (hypertension) Code(s): I10 - ESSENTIAL (PRIMARY) HYPERTENSION Status: Chronic Qualifiers: Hypertension type: essential hypertension Qualified Code(s): I10 - Essential (primary) hypertension (5) Dyslipidemia Code(s): E78.5 - HYPERLIPIDEMIA, UNSPECIFIED Status: Chronic - Plan cont NPO GI consult laparascopic evaluation unrevealing for source of problem
[2019-01-09] MEDS: Famotidine/PF 20 mg/2ml Vial SLOW IVP SCH (13:07)
[2019-01-09] MEDS: Tamsulosin HCl 0.4 MG CAP PO SCH (17:39)
[2019-01-09] MEDS ORDERED: Lorazepam 0.5 MG TAB PO PRN (17:58)
[2019-01-09] MEDS ORDERED: Lorazepam 1 MG TAB PO PRN (20:12)
--- NOTE | 2019-01-10 00:42 | CON ---
DATE OF CONSULTATION: 01/09/2019 REASON FOR CONSULTATION: Partial small bowel obstruction without evidence of obstruction on laparoscopy. CONSULTING PHYSICIAN: Dr. Ray Babcock. HISTORY OF PRESENT ILLNESS: The patient is an 83-year-old male with past medical history of coronary artery disease, status post CABG; hyperlipidemia; hypertension; peripheral arterial disease, status post aorto-iliac stent/graft; recurrent small-bowel obstructions, presenting with complaints of abdominal pain. Per chart review, the patient has had multiple episodes of recurrent small-bowel obstructions that have responded more to conservative management over the course of the last 3 years with presenting symptoms including nausea, vomiting, abdominal pain. Prior to admission, the patient states that he was in his usual state of health until approximately 7:00 p.m. on Tuesday when he again had recurrence of the nausea, vomiting, and generalized abdominal pain consistent with his prior episodes of small-bowel obstruction. With the onset of these symptoms, he knew that he needed to present to the emergency room for further evaluation and stated "if they give me that contrast, everything pushes on through." With the onset of this abdominal pain, he characterized it as periumbilical abdominal pain that would generalize to the entire abdomen, was burning in sensation, constant and would reach a severity of 10/10. The pain was worse with increased physical activity, eating and drinking with no specific food or liquid triggers; better with the use of morphine. He also states that with the onset of this abdominal pain, he was accompanied with increased nausea, vomiting, having approximately 10 to 12 discrete episodes of vomiting per day prior to coming into the hospital. On admission in the ER, he had a KUB performed that showed gaseous distention of the bowel within the upper abdomen that was concerning for a possible small bowel obstruction and ultimately admitted to the Surgical Service. He ultimately underwent laparoscopy earlier today with Dr. Ray Babcock with evaluation of the small bowel from the terminal ileum to the ligament of Treitz, but no discernible transition point, obstruction, stricture or inflammation was seen that might indicate a possible bowel obstruction. At the time of the interview, the patient states that his abdominal pain has been well controlled with pain medications during this admission. He also did not have replacement of the NG tube and has not had any further episodes of nausea, vomiting since it was removed. Currently, he denies any fevers, chills, hematemesis, melena, hematochezia, or odynophagia. He does have some complaints of pill dysphagia as an outpatient, but otherwise is able to eat and drink food stuffs without difficulty. Of note, when interviewing the patient, he states that approximately 3 years ago, he was having increased lower back pain and was placed on narcotic medications as part of management of this condition. It was shortly thereafter that he had his first episode of this partial small bowel obstruction. He was also diagnosed with "parasites in the stomach" in the past and placed on antibiotics per his physician operations administrative assistant/primary care physician. This was not diagnosed via infectious stool studies, but rather and treated empirically with antibiotics. Concerning his current situation, he has been taking Flexeril as an outpatient for his continued lower back pain in addition to intermittent use of Tylenol No. 3 with the last use being approximately 2 to 3 days ago. Per the patient and the patient's son-in-law, his last colonoscopy was approximately 7 to 8 years ago with normal findings during that procedure. He could not recall ever having an upper endoscopy. REVIEW OF SYSTEMS: A 10-category review of systems was obtained with all responses negative except for the pertinent positives as listed in HPI. PAST MEDICAL HISTORY: As per HPI. PAST SURGICAL HISTORY: Aortoiliac graft placement, ORIF of the right ankle, coronary artery bypass graft, colonoscopy. FAMILY HISTORY: Denies any GI malignancies. SOCIAL HISTORY: Denies any tobacco, alcohol, or illicit drug use. OUTPATIENT MEDICATIONS: Reviewed. ALLERGIES: IODINE. PHYSICAL EXAMINATION: VITAL SIGNS: Temperature 97.5, pulse 56, blood pressure 172/78, respiratory rate 18, saturating 98% on room air. GENERAL: The patient was lying in bed, in no acute distress. Alert and oriented x4. The patient was easily able to change from sitting to lying down to standing up positions without difficulty. HEENT: Normocephalic and atraumatic. NECK: Supple. No JVD or scleral icterus noted. CARDIOVASCULAR: Regular rate and rhythm with no discernible murmurs, gallops, or rubs. RESPIRATORY: Clear to auscultation bilaterally with no discernible wheezes or rales. ABDOMEN: Normoactive bowel sounds, soft. Mild abdominal distention. Tenderness to palpation in only the midepigastric region. EXTREMITIES: No cyanosis, clubbing, or edema. LABORATORY DATA: CBC with a white blood cell count of 11.8, hemoglobin 11.5, hematocrit 34.7, platelets 310. Chemistry with a sodium of 140, potassium 4.5, chloride 111, CO2 of 21, BUN 28, creatinine 2.11, glucose 99, AST 62, ALT 11, alkaline phosphatase 51, total bilirubin 0.3, albumin 4.4, lipase 16. IMAGING DATA: CT of the abdomen and pelvis was obtained on November 24, 2018, with the indication of intermittent bilateral flank pain. During that examination, there was scattered diverticula noted within the colon, but the small bowel was noted to be normal in caliber with normal appendix and without any associated enlarged mesenteric lymph nodes. There was no evidence of ascites, free air, or fluid collections, although the graft repair of the aorta measuring 4 cm in the greatest dimension was also seen without any abnormalities as well. A KUB was obtained on January 08, 2019, which showed gaseous distention of the bowel within the upper abdomen with the nasogastric tube extending into the left upper quadrant beneath the left hemidiaphragm. Repeat KUB on January 09, 2019, showed continued dilated loops of the bowel of the abdomen with numerous air-fluid levels consistent with a high-grade small-bowel obstruction. No significant contrast was appreciated within the large bowel. ASSESSMENT AND PLAN: The patient is an 83-year-old male with past medical history of coronary artery disease, status post coronary artery bypass graft; hyperlipidemia; hypertension; peripheral arterial disease, status post aortoiliac graft placement; and recurrent small-bowel obstructions, presenting again with a clinical picture consistent with recurrent small-bowel obstruction. Recurrent small-bowel obstruction. The patient has a history of these recurrent small-bowel obstructions that have been present intermittently around once yearly for the last 3 years, characterized as increased nausea, vomiting, and generalized abdominal pain with imaging findings concerning for that diagnosis. On each occasion, the patient had undergone evaluation with a contrast exam (presumably a barium contrasted exam) with resolution of the symptoms afterward. However, with inability to resolve the symptoms during this admission, he ultimately underwent exploratory laparoscopy on January 09, 2019, with evaluation of the small bowel from the terminal ileum to the ligament of Treitz. Per Dr. Babcock's operative note, there was no significant abnormalities seen during this examination with no clear indication for the partial small bowel obstruction. At this time, the differential could include medication-induced ileus/delayed intestinal motility (secondary to narcotic administration as an outpatient), possible intussusception not seen on imaging or laparoscopy, Crohn's disease (less likely), mesenteric ischemia resulting in ileus, infection (possible helminthic infections could potentially generate partial small bowel obstructions), and/or GI neoplasm. RECOMMENDATIONS: 1. Would continue the patient on n.p.o. status given his imaging consistent with a possible small bowel obstruction. 2. We will plan for EGD with push enteroscopy tomorrow for further evaluation of the upper GI tract. I would be loath to prep him for colonoscopy given the possibility of a high-grade bowel obstruction that would further compound/complicate that condition. 3. Would defer to surgical management for replacement of the NG tube. 4. Would attempt to minimize any narcotic medications during this admission given the possibility of narcotic-induced delayed intestinal motility. 5. We will place an order for infectious stool studies including ova and parasites that might contribute to the current clinical situation. We will continue to follow. Please call with any questions. Job ID: [id number]
[2019-01-10 05:20] LABS: Anion Gap 13 mmol/L (10-20); BUN (Urea Nitrogen) 31 mg/dL (8.4-25.7); Calc. Creatinine Clearance 26 mL/min (70-130); Calcium 7.8 mg/dL (7.8-10.44); Carbon Dioxide 20 mmol/L (23-31); Chloride 108 mmol/L (98-107); Estimated GFR-MDRD 29; Glucose 94 mg/dL (83-110); Potassium 4.7 mmol/L (3.5-5.1); Sodium 136 mmol/L (136-145)
[2019-01-10] MEDS: Sodium Chloride 0.45% 1,000 ML IV SCH (07:38)
[2019-01-10] MEDS: Atenolol 50 MG TAB PO SCH (07:49)
--- NOTE | 2019-01-10 08:24 | RAD ---
Radiograph abdomen 2 views: DATE: 01/10/2019 Time: 8:04 AM HISTORY: 83-year-old male with small bowel obstruction COMPARISON: 01/09/2019 FINDINGS: All of the enteric contrast media has advanced out of the small intestine, and is present throughout the nondilated colon, down to the sigmoid colon. Furthermore, the previously demonstrated dilation of air-filled small bowel loops have significantly improved. There are now several mildly dilated air -fluid level filled small bowel loops in the right lower quadrant. No pneumoperitoneum. Abdominal aortic stent graft. Esophagogastric tube has been removed. IMPRESSION: Interval resolution of the previously demonstrated high-grade small bowel obstruction, therapeuticall y by the Gastrografin.
[2019-01-10] MEDS ORDERED: Famotidine/PF 20 mg/2ml Vial SLOW IVP SCH (09:00)
--- NOTE | 2019-01-10 10:28 | OP ---
DATE OF PROCEDURE: 01/10/2019 PROCEDURE PERFORMED: Esophagogastroduodenoscopy with push enteroscopy. INDICATION FOR PROCEDURE: Recurrent small bowel obstructions with normal laparoscopy findings. DESCRIPTION OF PROCEDURE: After the risks and benefits of the procedure were explained to the patient including risks of bleeding, infection, perforation, reactions to anesthesia, aspiration, and/or pain, informed consent was obtained. The patient was then taken to the endoscopy suite, where deep sedation was administered via propofol and anesthesia support. Once adequate sedation was achieved, the patient was maneuvered into the left lateral decubitus position and a standard colonoscope was introduced into the mouth with intubation of the esophagus, stomach, and the proximal small intestines with the findings listed below. The patient tolerated the procedure well with no immediate perioperative complications. Upon conclusion of the procedure, all equipment was removed from the patient and the patient was transferred to PACU in satisfactory condition. FINDINGS: Esophagus: Normal-appearing mucosa was seen in the proximal, mid, and distal esophagus. There was no evidence of erosions, ulcerations, mass, lesions, or active/recent bleeding. Stomach: Mild increased mucosal erythema was seen throughout the entire stomach in a mosaic type pattern, but did not exhibit any other underlying pathology. There was no evidence of erosions, ulcerations, mass, lesions, or active/recent bleeding. Duodenum: Normal-appearing mucosa was seen in the duodenal bulb, second portion and third portion of the duodenum up to 80 cm past the incisors. There was no evidence of erosions, ulcerations, mass, lesions, active/recent bleeding, or etiology for small bowel obstruction seen during this portion of the examination. IMPRESSION: 1. Mild nonspecific gastropathy seen within the stomach, probably due to retained gastric contents over the course of this hospitalization. 2. Otherwise normal upper endoscopy to 80 cm past the incisors. 3. No etiology for the small bowel obstruction seen during this examination today. RECOMMENDATIONS: 1. Would start the patient on a clear liquid diet and advance as tolerated given lack of findings on laparoscopy and push enteroscopy. 2. Would place the patient on pantoprazole 40 mg daily given the mild nonspecific gastropathy. 3. We will consider small bowel follow through to determine resolution to small bowel obstruction. At this time, there is no additional information we can do as an inpatient. Would consider an outpatient capsule endoscopy for evaluation of the distal small intestine for possible inflammatory type process. We will sign off at this time. Please call with any questions. Job ID: [id number]
--- NOTE | 2019-01-10 10:45 | PDOC.HOSPP ---
- Subjective Encounter Date: 01/10/19 Encounter Time: 10:43 Subjective: on liquids without pain - Objective Vital Signs & Weight: Vital Signs (12 hours) Temp Pulse Resp BP Pulse Ox 01/10/19 07:17 98.4 F 50 L 14 162/74 H 97 01/10/19 03:17 98.1 F 94 16 127/64 94 L 01/10/19 00:00 98.8 F 54 L 16 120/56 L 96 Weight Weight 158 lb 6.4 oz I&O: 01/09/19 01/10/19 01/11/19 06:59 06:59 06:59 Intake Total 3235 1350 Output Total 4200 600 Balance -965 750 Result Diagrams: 01/09/19 04:29 01/10/19 03:45 Radiology Reviewed by me: Yes (abd series, SBO resolved) ROS - Medication Medications: Active Medications Generic Name Dose Route Start Last Admin Trade Name Freq PRN Reason Stop Dose Admin Atenolol 100 mg 01/08/19 09:00 01/10/19 07:49 Tenormin PO 100 mg DAILY SANA Administration Enoxaparin Sodium 30 mg 01/09/19 21:00 01/09/19 20:34 Lovenox SC Not Given 2100 SANA Famotidine 20 mg 01/10/19 09:00 01/10/19 07:51 Pepcid SLOW IVP 20 mg DAILY SANA Administration Sodium Chloride 1,000 mls @ 100 mls/hr 01/09/19 10:32 01/10/19 07:38 1/2 Normal Saline IV Not Given .Q10H SANA Lorazepam 0.5 mg 01/09/19 20:12 01/09/19 20:34 Ativan PO 0.5 mg Q4H PRN Administration Anxiety Morphine Sulfate 4 mg 01/08/19 11:38 01/09/19 04:48 Morphine SLOW IVP 4 mg Q2H PRN Administration Moderate to Severe Pain (6-10) Ondansetron HCl 4 mg 01/08/19 08:52 01/09/19 05:30 Zofran IVP 4 mg Q6H PRN Administration Nausea/Vomiting Tamsulosin HCl 0.4 mg 01/08/19 09:00 01/09/19 17:39 Flomax PO 0.4 mg DAILY SANA Administration - Exam awake alert Neck: no JVD Heart: RRR, no murmur Respiratory: CTAB Gastrointestinal: soft, non-distended, normal bowel sounds Extremities: no edema Hosp A/P (1) SBO (small bowel obstruction) Code(s): K56.69 - OTHER INTESTINAL OBSTRUCTION * DO NOT USE * Status: Resolved (2) CAD (coronary artery disease) Code(s): I25.10 - ATHSCL HEART DISEASE OF [place] CORONARY ARTERY W/O ANG PCTRS Status: Chronic Qualifiers: Coronary Disease-Associated Artery/Lesion type: [place] artery [place] vs. transplanted heart: [place] heart Associated angina: without angina Qualified Code(s): I25.10 - Atherosclerotic heart disease of [place] coronary artery without angina pectoris (3) CKD (chronic kidney disease) Code(s): N18.9 - CHRONIC KIDNEY DISEASE, UNSPECIFIED Status: Chronic Qualifiers: Chronic kidney disease stage: stage 3 (moderate) Qualified Code(s): N18.3 - Chronic kidney disease, stage 3 (moderate) (4) HTN (hypertension) Code(s): I10 - ESSENTIAL (PRIMARY) HYPERTENSION Status: Chronic Qualifiers: Hypertension type: essential hypertension Qualified Code(s): I10 - Essential (primary) hypertension (5) Dyslipidemia Code(s): E78.5 - HYPERLIPIDEMIA, UNSPECIFIED Status: Chronic - Plan sbo resolved, EGD unrevealing, discuss with Gen Surg
[2019-01-10] MEDS: Tamsulosin HCl 0.4 MG CAP PO SCH (11:12)
[2019-01-10 11:34] VITALS: BP 168/63; TEMP 97.8
--- NOTE | 2019-01-10 11:52 | RAD ---
SINGLE VIEW CHEST: Date: 01/10/19 COMPARISON: 02/11/16. HISTORY: Status post thoracocentesis. FINDINGS: Single view of the chest shows normal sized cardiomediastinal silhouette. The patient is status post sternotomy. There is no evidence of consolidation, mass, pneumothorax, or pleural effusion. IMPRESSION: No evidence of acute cardiopulmonary disease. POS: [facility]
--- NOTE | 2019-01-10 15:20 | DIS ---
DATE OF ADMISSION: 01/09/2019 DATE OF DISCHARGE: 01/10/2019 DISCHARGE DISPOSITION: Discharged to home. PRIMARY CARE PHYSICIAN: SLIM James. FINAL DIAGNOSES: 1. Small-bowel obstruction, resolved. 2. Coronary artery disease. 3. Chronic kidney disease, stage 3. 4. Dyslipidemia. DIET: Heart healthy. PENDING AT THE TIME OF DISCHARGE: Nothing. CODE STATUS: Full. CONSULTATIONS: 1. Dr. Ray Babcock, General Surgery. 2. Dr. Tarik Rosa, Gastroenterology. PROCEDURES PERFORMED: 1. On 01/09/2019, diagnostics laparoscopy. 2. On 01/09/2019, esophagogastroduodenoscopy. HOSPITAL COURSE: The patient with a history of small-bowel obstruction, admitted to the [facility]. His radiographic studies showed small-bowel obstruction. Small bowel with Gastrografin showed a high-grade partial small- bowel obstruction in the distal small bowel. The patient underwent a laparoscopic exploration with no positive findings with the EGD with no positive findings. His small-bowel obstruction spontaneously released. He has been fed, feels good, wants to go home. He is being discharged. PERTINENT LABORATORY DATA: Initial white count 11.1, followup 11.8. Hemoglobin 13.2, followup 11.5. Platelet count 359,000, followup 210,000. Comprehensive metabolic profile showed a creatinine of 2.26. Lytes balanced. Liver function tests unremarkable. DISCHARGE PLAN: The patient is being discharged for followup with Dr. Babcock, follow up with Dr. Rosa for possible capsular endoscopy. Job ID: [id number] MTDD
[2019-01-11] MEDS ORDERED: Clopidogrel Bisulfate 75 MG TAB PO SCH (09:00)
[2019-01-11] MEDS ORDERED: Fenofibrate Nanocrystallized 145 MG TAB PO SCH (09:00)
[2019-01-11] MEDS ORDERED: Aspirin 81 mg Enteric Coated Tablet PO SCH (09:00)
[2019-01-11] MEDS ORDERED: Amlodipine 10 MG TAB PO SCH (09:00)
--- NOTE | 2019-01-13 13:33 | EKG ---
Test Reason : Blood Pressure : / mmHG Vent. Rate : 074 BPM Atrial Rate : 074 BPM P-R Int : 152 ms QRS Dur : 080 ms QT Int : 394 ms P-R-T Axes : 064 -21 060 degrees QTc Int : 437 ms Normal sinus rhythm Possible Left atrial enlargement Borderline ECG Confirmed by FREYA HURLEY DO ([id number]), newspaper managing editor SOPHIA GAMEZ ([id number]) on 01/13/2019 1:33:21 PM Referred By: Confirmed By:FREYA HURLEY DO
== END 2019-01-10 15:43 | disposition home or self-care (01) | DRG 389 ==
LOC: ERS 02:03 → SURG A 04:00 → OBSVTOIN 01-09 10:28
PROVIDERS: ADMIT Hospitalist; ATTEND Hospitalist
PROC: 0W9G4ZZ Drainage of Peritoneal Cavity, Percutaneous Endoscopic Approach (ICD-10-PCS; principal; 2019-01-09)
PROC: 0DJ08ZZ Inspection of Upper Intestinal Tract, Via Natural or Artificial Opening Endoscopic (ICD-10-PCS; 2019-01-10)
DX: K56.600 Partial intestinal obstruction, unspecified as to cause (principal); R18.8 Other ascites; I25.10 Atherosclerotic heart disease of native coronary artery without angina pectoris; N18.3 Chronic kidney disease, stage 3 (moderate); E78.5 Hyperlipidemia, unspecified; I12.9 Hypertensive chronic kidney disease with stage 1 through stage 4 chronic kidney disease, or unspecified chronic kidney disease; Z95.1 Presence of aortocoronary bypass graft; Z79.82 Long term (current) use of aspirin; Z79.02 Long term (current) use of antithrombotics/antiplatelets; Z88.8 Allergy status to other drugs, medicaments and biological substances
CPT/HCPCS: 36415; 36416; 71045; 74018; 74019; 74022; 74250; 80048; 80053; 83690; 84484; 85025; 87015; 87206; 93005; 96361; 96374; 96375; J0131; J0670; J1650; J1885; J2185; J2270; J2405; J3010; J3490; Q9963; S0028